=== PATIENT | male | born 1935 | race Caucasian/White ===

== ENCOUNTER 2016-07-16 11:00 | Inpatient (IN) | payer OTHER, MEDICARE ==
[~2016-07-16] VITALS: Ht 160 cm; Wt 86.3 kg
--- NOTE | ~2016-07-16 | OR ---
PATIENT'S NAME: FARHAT MANCIA [facility] AGE: 81 Y [address] ROOM: [address] [address] LOCATION: [facility] ADMIT DATE: 09/04/2016 OR/Procedure Report DISCHARGE DATE: FAMILY PHYSICIAN: Joyce Elias ATTENDING PHYSICIAN: JULES CARTAGENA SURGEON: Jules Cartagena MD SINGER AND UNLOADER: Elijah Pugh PA-C. An assistant corporate controller was necessary during the entire case. The assistant corporate controller helped with positioning the limb in space, soft tissue retraction, glenoid exposure, implant positioning, as well as wound closure. DATE OF PROCEDURE: 09/04/2016 PREOPERATIVE DIAGNOSIS: Right shoulder osteoarthritis. POSTOPERATIVE DIAGNOSES: 1. Right shoulder osteoarthritis. 2. Right biceps tendinopathy. PROCEDURES: 1. Right anatomic total shoulder arthroplasty using the Tornier Simpliciti system. 2. Open biceps tenodesis. ANESTHESIA: General. ESTIMATED BLOOD LOSS: 200 mL. DRAINS: None. SPECIMENS: None. COMPLICATIONS: None. INDICATIONS: Farhat Mancia is an 81-year-old male. He presented to my clinic with right shoulder pain. X-ray showed significant degenerative changes across that shoulder joint. An MRI was obtained, which did show a small articular-sided cuff tear, but the majority of the cuff tendon and muscle was intact. It showed some cystic changes on both the glenoids as well as the humeral head side. I talked to him about the continued conservative treatment with injections, antiinflammatories, and physical therapy. I also talked to him about the role of activity restrictions versus a shoulder replacement. Ultimately, his pain was significant enough. He elected to proceed with shoulder arthroplasty. I talked to him about the role of the reverse shoulder versus anatomic shoulder. He ultimately wanted to proceed PATIENT'S NAME: FARHAT MANCIA [facility] AGE: 81 Y [address] ROOM: [address] [address] LOCATION: [facility] ADMIT DATE: 09/04/2016 OR/Procedure Report DISCHARGE DATE: FAMILY PHYSICIAN: Joyce Elias ATTENDING PHYSICIAN: JULES CARTAGENA with shoulder replacement and is willing to take the risk. DESCRIPTION OF PROCEDURE: Surgical marking pen was used to correctly identify the right shoulder as a surgical site. Consent was signed and dated. He was taken back to the operative suite, placed supine on the OR table. He underwent general endotracheal induction and intubation. Time-out was called by myself. During the time-out, the patient, the dosing of the preoperative antibiotics, the implants to be utilized, and the postoperative plan was reviewed by everyone in the room. At this point, he was positioned in a beach chair position. All bony prominences were well padded. The right upper extremity was then prepped and draped in a standard sterile fashion. A 10 blade scalpel was used to make the standard deltopectoral incision. I dissected down through the skin and subcutaneous tissue. I identified the cephalic vein. I retracted the cephalic vein medially. I released any deltoid adhesions with a finger dissection. I then excised the bursa. I identified the coracoid as well as the conjoint tendon. I gently retracted the conjoint tendon medially. At this point, I identified the three sister vessels and ligated them. The upper 1 cm of the pectoralis major tendon was released. I identified the biceps within the groove. A #2 Orthocord stitch was used to perform a tenodesis to the long head of the biceps after it was identified in the groove. I then released the proximal extent of the long head of the biceps. Now that I had the bicipital groove identified, I peeled the subscapularis off that lesser tuberosity. I tagged it for later identification and the repair. I dislocated the shoulder joint. I was able to evaluate the insertion of the supraspinatus and the infraspinatus and they felt to be intact. I then removed any osteophytes that were present. I then made a freehand humeral head cut after I marked the guide at 135 degrees. He had very good bone, no evidence of any cyst there within that humeral cut. I used the [employer] guide size 3. I passed the guide pin into the far lateral cortex. I then concentrically reamed the cut surface of the humerus down to witness circles. I then impacted a size 3 trial nucleus into position and left the humeral head protector in place. I then exposed the glenoid. I performed a 360-degree labral excision and capsulotomy. I then determined the size of the glenoid as a size large with a 40-degree radius of curvature. I placed the central guide pin. I then sequentially reamed down to a concentric subchondral bone. I then drilled the central peg. Using the guide, I then drilled the 3 peripheral pegs. The wound was thoroughly irrigated. I did not have any perforations in those peripheral holes. At this point, a size large 40-degree radius of curvature implant was opened. I bone grafted the central peg. I then used Simplex P bone cement to cement the 3 peripheral pegs using a Deondre syringe. Once that was performed, I then impacted the final polyethylene into position. I held it in place until it had cured. Once that was performed, I then turned my attention back to the humerus. I placed a size 52 x 21 mm humeral head onto the trial nucleus. I reduced the shoulder. I had 30% spring block. I felt very comfortable with the soft tissue balance. PATIENT'S NAME: FARHAT MANCIA [facility] AGE: 81 Y [address] ROOM: [place] [address] LOCATION: [facility] ADMIT DATE: 09/04/2016 OR/Procedure Report DISCHARGE DATE: FAMILY PHYSICIAN: Joyce Elias ATTENDING PHYSICIAN: JULES CARTAGENA I then removed the trial humeral head and the nucleus. I then passed 8 drill holes in that lesser tuberosity followed by eight #2 Orthocord stitches. I then impacted the final size 3 simplicity nucleus with a 52 x 21 mm humeral head into position. No evidence of any loosening was present. I then repaired the subscapularis after I had taken the shoulder through range of motion and felt comfortable with repair. The subscapularis was repaired using those #2 Orthocord passed through bone tunnels using a mattress stitch. I then achieved hemostasis. No drain was necessary. I closed the fascia with 0 Vicryl. I closed the skin with a 2-0 Vicryl, followed by a running 3-0 Monocryl, followed by jessika, Xeroform, 4x4s, and Tegaderm. He was placed into a sling. He was transferred to the recovery room in stable condition where he was found to be neurovascularly intact. MD RACHEL LA/eric /[id number] d: 09/05/16 0016 t: 09/18/16 2132, OPERATIVE SUMMARY
--- NOTE | ~2016-07-16 | HP ---
PATIENT'S NAME: FARHAT MAGANA [facility] AGE: 81 Y [address] ROOM: [place] [address] LOCATION: G3 ADMIT DATE: 09/04/2016 History & Physical DISCHARGE DATE: FAMILY PHYSICIAN: Joyce Elias ATTENDING PHYSICIAN: JULES CARTAGENA DATE OF SERVICE: CHIEF COMPLAINT: Right shoulder pain. HISTORY OF PRESENT ILLNESS: The patient is an 81-year-old white male, who was admitted to the care of Dr. Jules Cartagena, the orthopedic surgeon, for a right total shoulder arthroplasty versus reverse total arthroplasty. I have asked to follow him postop for medical illness. When I see him, he is resting quietly in a chair, has nice drag in his right shoulder. His right arm is in a sling. He is not complaining of shortness of breath, chest pain, nausea, or vomiting. CURRENT MEDICATIONS: 1. Norvasc 10 mg a day. 2. Celexa 20 mg a day. 3. Enalapril 20 mg a day. 4. Glipizide 10 mg 2 tablets in the morning and 2 tablets in the evening. 5. Hydrochlorothiazide 25 mg a day. 6. Megestrol Acetate 40 mg p.o. twice a day. 7. Metformin 1000 mg twice a day. 8. Metoprolol 50 mg one to one and half tablets twice a day. 9. Multivitamins as needed. 10. Zantac 150 twice a day. 11. Simvastatin 40. ALLERGIES TO MEDICATION: See nurses notes. FAMILY HISTORY: Negative for problems with general anesthesia or bleeding disorder. SOCIAL HISTORY: Quit smoking years ago. Has an occasional drink of alcohol. REVIEW OF SYSTEMS: PATIENT'S NAME: FARHAT MAGANA [facility] AGE: 81 Y [address] ROOM: [address] [address] LOCATION: [facility] ADMIT DATE: 09/04/2016 History & Physical DISCHARGE DATE: FAMILY PHYSICIAN: Joyce Elias ATTENDING PHYSICIAN: JULES CARTAGENA Positive for diabetes mellitus type 2; hypertension, essential; coronary atherosclerosis and is status post one stent placed in 2002, he was cleared by cardiology on 07/24/2016 preop. PHYSICAL EXAMINATION: GENERAL: An elderly male, who is bearded, sitting in a chair, in no apparent distress. He is somewhat hard of hearing. I do think he is competent. HEENT: Shows pupils react to light. TMs not visualized. Posterior pharynx is clear. NECK: Unremarkable. LUNGS: Clear anteriorly. CARDIAC: Sounds show no obvious murmur, gallop, or rub. ABDOMEN: Mildly distended but nontender. PELVIC AND RECTAL: Not done. EXTREMITIES: Show an ice bag on his right shoulder and dressing and his right arm is in a sling. NEUROLOGIC: Exam shows no lateralizing signs. Cranial nerves are intact. Mental status normal postop. No sign of mood disorder. ASSESSMENT: 1. End-stage osteoarthritis and degenerative joint disease, right shoulder. 2. Hypertension, essential. 3. Diabetes mellitus type 2. 4. Status post stent placement for coronary artery disease in 1999. 5. Status post left inguinal hernia repair. 6. Status post right total hip arthroplasty. 7. Depression, in remission. 8. Suppressive therapy for prostate cancer in the past, hormone. 9. Gastritis. 10. Hyperlipidemia. PLAN: Follow daily. KATHY GE MD CARBURETOR REBUILDER/modl /[id number] D: T: 740 HISTORY & PHYSICAL
[2016-07-17] MEDS ORDERED: NORVASC10 MG PO (10:59)
[2016-07-17] MEDS ORDERED: VASOTEC20 MG PO (10:59)
[2016-07-17] MEDS ORDERED: CELEXA20 MG PO (10:59)
[2016-07-17] MEDS ORDERED: MEGACE40 MG PO (11:00)
[2016-07-17] MEDS ORDERED: GLUCOTROL10 MG PO (11:00)
[2016-07-17] MEDS ORDERED: HYDRODIURIL25 MG PO (11:00)
[2016-07-17] MEDS ORDERED: GLUCOPHAGE1000 MG PO (11:00)
[2016-07-17] MEDS ORDERED: LOPRESSOR50 MG PO (11:01)
[2016-07-17] MEDS ORDERED: ZOCOR40 MG PO (11:02)
[2016-07-17] MEDS ORDERED: ASPIRIN EC81 MG PO (11:02)
[2016-07-17] MEDS ORDERED: EXCEDRIN EXTRA1 TAB PO (11:03)
[2016-07-17] MEDS ORDERED: ARTIFICIAL TEAR15 M2 OPHTH (11:03)
[2016-07-17] MEDS ORDERED: PRESERVISION L1 EACH PO (11:04)
[2016-07-17] MEDS ORDERED: CPAP INH (11:05)
--- NOTE | 2016-09-05 04:08 | NUR ---
POD#1 RIGHT TSA, INCISION CDI WITH MEPILEX IN PLACE, UP WITH SBA TO THE BATHROOM, GOOD CSMS, GOOD INTAKE/OUTPUT WITH NUMEROUS URINE OUTPUTS R/T HX OF PROSTATE CANCER. VS WNL, LEFT HAND/LEFT FA PIVS SALINE LOCKED, O2 @2L OVER NIGHT PATIENT REFUSED TO USE HIS CPAP "IT DOESNT WORK RIGHT" AND WAS DESATING INTO THE MID 80'S WITHOUT THE O2 SUPPORT WHILE SLEEPING. [place] ON THE LEFT WITH AIDE IN PLACE. PAIN CONTROLLED WITH DILAUDID & SCHEDULED TYLENOL AND WILL REASSESS PAIN NEEDS BEFORE SHIFT CHANGE. POSSIBLE DC HOME TODAY.
[2016-09-05] MEDS ORDERED: ECOTRIN325 MG PO (08:22)
[2016-09-05] MEDS ORDERED: OXYCONTIN EXTEN10 MG PO (08:27)
[2016-09-05] MEDS ORDERED: DILAUDID 2MG(HYD2 MG PO (08:28)
== END 2016-09-05 10:20 | disposition disaster alternative care site (69) | DRG 483 ==
LOC: G3N 09-04 05:37
PROVIDERS: ADMIT Orthopaedic Surgery Sports Medicine
PROC: 0RRJ00Z Replacement of Right Shoulder Joint with Reverse Ball and Socket Synthetic Substitute, Open Approach (ICD-10-PCS; principal; 2016-09-04)
DX: M19.011 Primary osteoarthritis, right shoulder (principal); E11.9 Type 2 diabetes mellitus without complications; I10 Essential (primary) hypertension; Z87.891 Personal history of nicotine dependence; F32.9 Major depressive disorder, single episode, unspecified; K29.70 Gastritis, unspecified, without bleeding; E78.5 Hyperlipidemia, unspecified; Z85.46 Personal history of malignant neoplasm of prostate
CPT/HCPCS: C1713; C1776; J0171; J0690; J1100; J2001; J7030; J7120

== ENCOUNTER 2016-09-13 18:20 | Inpatient (IN) | payer OTHER, MEDICARE ==
[~2016-09-13] VITALS: Ht 160 cm; Wt 84.4 kg
--- NOTE | ~2016-09-13 | HP ---
PATIENT'S NAME: FARHAT MAGANA [facility] AGE: 81 Y [address] ROOM: [id number] [place], [place] [address] LOCATION: [facility]PCU ADMIT DATE: 09/13/2016 History & Physical DISCHARGE DATE: FAMILY PHYSICIAN: PHYSICIAN, UNKNOWN ATTENDING PHYSICIAN: MARIAH FRANCO V DATE OF SERVICE: CHIEF COMPLAINT: Shortness of breath. HISTORY OF PRESENT ILLNESS: This is an 81-year-old male who is a poor historian. The story is obtained directly from the patient and from reviewing the medical chart and the story is that the patient presented to [facility] on September 11, 2016 in the emergency room for urinary frequency and difficulty and the patient had a bladder scan performed at the [facility] earlier ago and show 1 L of urine retention. The patient was transferred to [facility] and the Martino was placed and had 1.5 L of urine drained. The patient was also noted to be drowsy and there was a concern that he might be taking too much narcotics for his recent right shoulder replacement surgery. However, this was never confirmed. Further workup was performed and the patient was found to have bilateral pulmonary emboli on the CT of the chest with contrast given that the patient was found to be hypoxic with 86% on room air. D-dimer was also elevated at 3510. The patient did not complain of any chest pain at that time, the patient is a poor historian, he also denies any shortness of breath, which is unreliable. The patient was admitted and the patient was started on Xarelto starting on September 11, 2016 with 15 mg p.o. b.i.d. Today, on September 13, 2016, the patient was noted to be tachypneic. The patient was supposed to wear CPAP at night for his sleep apnea, but has been noncompliant due to discomfort by wearing the mask. The patient denies any chest pain, he also denies any shortness of breath, but the patient was found to have a low-grade temperature at 100.1 and was still hypoxic at 96% on 4 L nasal cannula; however, he denies any cough and also denies any chest pain and denies any shortness of breath. Therefore, imaging test was performed. The patient had a chest x-ray performed on September 13, 2016 and showed cardiac enlargement with diffuse interstitial prominence identified likely secondary to interstitial edema. Therefore, the patient was treated with IV Lasix, he has gotten a total of 120 mg IV, and has total urine output of roughly 2 L. The patient was later transferred here for higher level of care for concern of CHF and pneumonia due to low-grade fever and still hypoxic despite getting Xarelto and on oxygen nasal cannula. REVIEW OF SYSTEMS: As mentioned in the history of present illness. All other systems reviewed PATIENT'S NAME: FARHAT MAGANA [facility] AGE: 81 Y [address] ROOM: [id number] [place] [id number] LOCATION: [facility]U ADMIT DATE: 09/13/2016 History & Physical DISCHARGE DATE: FAMILY PHYSICIAN: PHYSICIAN, UNKNOWN ATTENDING PHYSICIAN: MARIAH FRANCO V and negative except those mentioned in the history of present illness. PAST MEDICAL HISTORY: From the medical records that I could get is that: 1. He has a history of prostate cancer, details are not clear, the patient is a poor historian. 2. Diabetes mellitus type 2. 3. Hypertension. 4. Osteoarthritis. 5. Hyperlipidemia. 6. Hard of hearing. ALLERGIES: NO KNOWN DRUG ALLERGIES, ACCORDING TO THE PATIENT AND TO THE CHART. HOME MEDICATIONS: Currently, it is being reconciled. SOCIAL HISTORY: According to the patient, he was a former cigarette smoker, he quit about 18 years ago. He used to smoke about 1 pack per day for many years. He denies any alcohol or illegal drug use. PAST SURGICAL HISTORY: 1. Status post right shoulder arthroplasty from osteoarthritis on September 04, 2016. 2. History of cardiac stent placement in 1999, details not clear. 3. Status post left inguinal hernia repair in the past. 4. Status post total right hip arthroplasty in the past. 5. The patient denies any other surgeries according to the patient. FAMILY HISTORY: Both parents from advanced age, the patient could not remember the cause of . PHYSICAL EXAMINATION: VITAL SIGNS: At the time of my dictation, temperature 98.5, heart rate 88, respiration 26, blood pressure 133/70, and saturation 92% on 4 L nasal cannula. Pain 0/10. GENERAL APPEARANCE: The patient is alert and oriented x3, in mild respiratory distress, from tachypnea. HEENT: Pupils equally round and reactive to light. Extraocular muscles intact. Difficult to assess JVD due to obesity. CARDIOVASCULAR: Regular rate and rhythm. Normal S1, S2. Could not appreciate murmur, rubs, or gallops. PATIENT'S NAME: FARHAT MAGANA [facility] AGE: 81 Y [address] ROOM: [address] [address] LOCATION: [facility] ADMIT DATE: 09/13/2016 History & Physical DISCHARGE DATE: FAMILY PHYSICIAN: PHYSICIAN, UNKNOWN ATTENDING PHYSICIAN: MARIAH FRANCO V RESPIRATORY: Bibasilar crackles. No rhonchi, no rales, no wheezing. ABDOMEN: Obese, soft, nontender, nondistended, bowel sounds present, no hepatosplenomegaly. EXTREMITIES: A +1 bilateral pitting edema in bilateral anterior calves. NEUROLOGIC: Grossly nonfocal. SKIN: No ulcer, no rash, no cyanosis. MUSCULOSKELETAL: No joint pain. No muscle pain except some mild pain in the right shoulder. LABORATORY DATA: Currently, labs are pending. IMAGING STUDIES: 1. Currently, chest x-ray is pending. 2. EKG from the outside facility performed on September 11, 2016 shows sinus rhythm, heart rate at 68 beats per minute, CT 148, QRS 86, QTc 457. No finding to suggest acute ischemia. ASSESSMENT AND PLAN: 1. Acute hypoxemic respiratory failure, secondary to bilateral pulmonary emboli as well as acute congestive heart failure and possibly pneumonia: For the bilateral pulmonary emboli, I will resume the Xarelto, which he is taking 15 mg p.o. b.i.d., he is due for 1 dose tonight. Keeping on oxygen nasal cannula, right now, he is on 4 L, saturating at 92%. Watch him closely for blood pressure; currently, he is hemodynamically stable. For his acute congestive heart failure, I am not sure which type given that there is no echo. We will get a transthoracic echo in the morning. Fluid restriction to less than 1.2 L per day. Strict in's and out's, daily weight, and I will check an enzyme and the pro-BNP now and also repeat 1 more in the morning. I will get a Cardiology consult in the morning as well. EKG in the morning as well. I will give him another dose of 40 mg intravenous Lasix and replace potassium as necessary given that he still has bibasilar crackles and still has leg edema, which is new onset, according to him. Continue telemetry monitoring. Regarding his possible pneumonia, I will get a chest x-ray, right now. He is not coughing, but he does have bibasilar crackles, I will put him on the incentive spirometry to prevent atelectasis and given that he has low- grade fever from the outside facility, I will go ahead and give him 1 dose of intravenous linezolid and intravenous meropenem and also p.o. Levaquin and depending on his overnight course tomorrow can decide about continuing the antibiotics or not. I will do the pneumonia workup including nebulization and check a urine antigen for Legionella and pneumococcal and also do a sputum culture and gram stain if he produces any sputum. Currently, the patient is not coughing. I will not give steroids because he is not wheezing and the steroids can cause fluid PATIENT'S NAME: FARHAT MAGANA [facility] AGE: 81 Y [address] ROOM: [address] [address] LOCATION: [facility] ADMIT DATE: 09/13/2016 History & Physical DISCHARGE DATE: FAMILY PHYSICIAN: PHYSICIAN, UNKNOWN ATTENDING PHYSICIAN: MARIAH FRANCO V retention. Further plan depends on clinical course. 2. Regarding his diabetes type 2. I will do the insulin sliding scale with aspart a.c. and h.s. mild dose and check A1c in the morning. Titrate as necessary. 3. Regarding his urinary retention: Continue to keep the Martino in place and I will get a Urology consult in the morning. 4. Hypertension: I will hold his home blood pressure medications for now to give more room to the Lasix. 5. Deep vein thrombosis prophylaxis: He will be on Xarelto. 6. Code status: He is DNR/DNI. Time spent on the day of admission 45 minutes including chart review, interviewing and examining the patient, addressing all the questions and concerns that the patient had, and going over the plan of care with the patient and the patient's grandson and the nurses. MARIA INES HOLLOWAY MD CC/eric /[id number] D: [id number] T: [id number] HISTORY & PHYSICAL
--- NOTE | ~2016-09-13 | CON ---
PATIENT'S NAME: FARHAT MANCIA [facility] AGE: 81 Y [address] ROOM: [place] [address] [facility] ADMIT DATE: 09/13/2016 Consultation DISCHARGE DATE: FAMILY PHYSICIAN: PHYSICIAN, UNKNOWN ATTENDING PHYSICIAN: MARIAH FRANCO V REFERRING PHYSICIAN: ANAY SAEZ MD Dear Colleagues: Thank you for asking me to see Mr. Mancia, who is an 81-year-old male patient, who had increased frequency of micturition and also somnolence. This was evaluated in [facility] and was found to have 1500 mL residual volume in his urine along with bilateral pulmonary emboli. He was transferred over for further management and he is already on Xarelto. He, before this problem, had a left shoulder surgery. Prior to which, he had a Lexiscan Cardiolite study for preop evaluation, which was essentially unremarkable with normal ejection fraction and inferior wall fixed defect most consistent with soft tissue attenuation. The patient denies any chest pains per se. He has not been particularly short of breath before the surgery. He has been in functional class 2. He has not had any structured exercise program. He has been working out in the yard and has not had much of a problem. Currently, there has been no paroxysmal nocturnal dyspnea or orthopnea. He denies lightheadedness, dizziness, syncope, presyncope, palpitations, or ankle swelling. The patient has history of hypertension, type 2 diabetes, and elevated cholesterol. He is not a smoker and there is no family history of premature coronary artery disease. He has never had an KS, but had a stent placed in the year 1999. There is no history of congestive heart failure or atrial fibrillation. MEDICATIONS: His current list of medications are; 1. Ipratropium bromide. 2. Levalbuterol hydrochloride. 3. Citalopram. 4. Insulin. 5. Megestrol 40 mg b.i.d. 6. Rivaroxaban 15 mg b.i.d. 7. Glucagon. 8. Simvastatin 20 mg every evening. 9. Sodium chloride. PATIENT'S NAME: FARHAT MANCIA [facility] AGE: 81 Y [address] ROOM: [place] [address] LOCATION: [facility] ADMIT DATE: 09/13/2016 Consultation DISCHARGE DATE: FAMILY PHYSICIAN: PHYSICIAN, UNKNOWN ATTENDING PHYSICIAN: MARIAH FRANCO V ALLERGIES: NO KNOWN DRUG ALLERGIES. PAST MEDICAL HISTORY: 1. Osteoarthritis. 2. Hardness of hearing. 3. History of prostate cancer. 4. Right shoulder arthroplasty. 5. Left inguinal hernia. 6. Right total hip arthroplasty. SOCIAL HISTORY: The patient is . He denies abusing alcohol. His appetite and weight have been stable. He quit smoking 18 years ago. FAMILY HISTORY: No premature coronary artery disease. REVIEW OF SYSTEMS: A 12-point review of systems; 1. History of inguinal hernia. 2. History of constipation. 3. Frequent voiding. 4. Sleepiness and weakness. PHYSICAL EXAMINATION: VITAL SIGNS: His blood pressure is 130/62, oxygen saturation is 92%, heart rate is in the 90s and regular, and respiration is 18. HEENT: Normal. NECK: Supple with no JVD, thyromegaly, lymphadenopathy, or carotid bruit. HEART: PMI is not well located. First and second heart sounds are regular. There are no added sounds. CHEST: Clear. ABDOMEN: Soft. EXTREMITIES: Reveal no edema. CENTRAL NERVOUS SYSTEM: Intact. ASSESSMENT: Multiple pulmonary emboli bilaterally. He had a recent stress test in July that was negative for ischemia. He had an echo today that has not been read yet. His troponins are negative. His proBNP is elevated at 1745. He is anemic at 9 grams. His renal function and liver function studies were within normal range. Potassium is 3.7. PATIENT'S NAME: FARHAT MANCIA [facility] AGE: 81 Y [address] ROOM: [id number] [place] [id number] LOCATION: [facility] ADMIT DATE: 09/13/2016 Consultation DISCHARGE DATE: FAMILY PHYSICIAN: PHYSICIAN, UNKNOWN ATTENDING PHYSICIAN: MARIAH FRANCO V RECOMMENDATIONS: 1. I agree with continuing with the anticoagulation. 2. We will see what his echo looks like. 3. History of PCI in the past. We will make sure that he is on appropriate dose of atorvastatin before he leaves the hospital. Again, I appreciate this opportunity to participate in the care of Mr. Mancia. MD KARLENE KOLB/modl /[id number] d: 09/14/16 1807 t: 09/24/16 1234, CONSULTATION REPORT
--- NOTE | ~2016-09-13 | DS ---
PATIENT'S NAME: FARAHT MAGANA [facility] AGE: 81 Y [address] ROOM: G6314 [place], [place] [address] LOCATION: GPCU ADMIT DATE: 09/13/2016 Discharge Summary DISCHARGE DATE: 09/18/2016 FAMILY PHYSICIAN: Joyce Elias ATTENDING PHYSICIAN: Gumaro Vela V PRIMARY DIAGNOSES: 1. Acute hypoxic respiratory failure. 2. Acute pulmonary embolism. 3. Acute on chronic diastolic congestive heart failure. 4. Acute urinary retention. 5. Diabetes type 2 with hyperglycemia. 6. Sinus tachycardia with premature atrial contractions. 7. Thrombocytosis. PRINCIPAL PROCEDURE: Done for the patient, none was indicated. LABORATORY DATA: On admission, WBC on admission was 9.7, was still throughout the hospital stay, by discharge it was 9.8; H and H on admission was 9.3/28.0, prior to discharge was 9.6/30.4; platelets on admission was 580, prior to discharge was 544. Sodium 139, was stable throughout the hospital stay; potassium on admission was 3.6, prior to discharge was 3.7; bicarb was stable at 23; BUN on admission was 21, prior to discharge it was 34; and creatinine on admission was 1.1, prior to discharge was 1.3. Liver function tests remained stable throughout the hospital stay. INR was 1.2. UA: Leukocytes 500, nitrite negative, wbc's 50-100, and bacteria moderate. Procalcitonin on admission was 0.39, repeat was 0.32. Urine for Legionella antigen was negative. Urine culture was no growth x2 days. Blood cultures remained no growth x2 days. Echocardiogram: EF 60%, [id number] concentric LVH, normal LV size, normal right ventricular structure and function. RADIOLOGY: Chest x-ray on admission, there appears to be slight worsening hazy perihilar interstitial opacity suggesting interstitial edema. No discrete focal infiltrate, pleural effusion, or pneumothorax identified. Repeat chest x-ray shows cardiac enlargement with mild vascular congestion; reticular opacity in the parenchyma of both lungs, likely reflecting interstitial edema; interval improvement since prior imaging. A chest x-ray on the day of discharge is reported as improvement in radiographic appearance with partial clearing in the lungs since prior imaging. HOSPITAL COURSE: For history of present illness, please take a look at the H and P, which was done by Dr. Venegas. The patient was admitted for acute hypoxic respiratory failure. The working differentials included pneumonia versus pulmonary edema from CHF exacerbation. The patient did get 1 dose of broad- spectrum antibiotics of Zyvox, Levaquin, and Zosyn. All of which were PATIENT'S NAME: FARHAT MAGANA [facility] AGE: 81 Y [address] ROOM: [place] [address] LOCATION: GPCU ADMIT DATE: 09/13/2016 Discharge Summary DISCHARGE DATE: 09/18/2016 FAMILY PHYSICIAN: Joyce Elias ATTENDING PHYSICIAN: Gumaro Vela V discontinued by the next day of the hospital stay except for the Levaquin which he continued on for an additional 4 days. He did also present with acute urinary retention, for which he had a Urology consult for, and after the patient was reviewed by Urology and they recommended for the patient to follow up with his urologist at the [facility] and recommendation per Urology, Dr. Barney, included that of Martino catheter indwelling with routine exchange of the Martino catheter every 4 weeks. While the patient will follow up with his urologist at the [facility], who will continue to follow up with the patient and decide when the patient will be an appropriate candidate for a suprapubic tube catheter. The patient also did get a Cardiology consult given the acute hypoxic respiratory failure, which was also thought to be secondary to pulmonary edema from heart failure. His echocardiogram which was done revealed a diastolic heart failure. He was diuresed with improvement in his breathing and also with a decrease in his oxygen demand. Cardiology subsequently started the patient on Aldactone, and after a couple of days, his Lasix was discontinued and was started on torsemide by the lead cook of 20 mg daily. However given the slow increase in his creatinine, I decided to reduce the torsemide dose from 20 to 10 mg. eventually a day prior to discharge, the patient was successfully weaned off oxygen to room air. He did also get physical therapy and also ambulated more than 300 feet. Initial discharge plan was for probably the patient to go to a Swing Bed given the fact that at that point in time, he still required 1-2 L of oxygen and given his physical deconditioning; however, after he was further reviewed by the physical therapist and with the amount of distance that he was able to walk, home care associate felt the patient would not be an appropriate candidate for a Swing Bed and family was willing to take the patient home to continue with his care with home health. So ultimately, this was decided upon for the patient to be discharged home with home health as per family's request and given his relatively good ambulation. So on the day of discharge, vital signs were stable and the patient was discharged home. The patient was continued on his Xarelto which he presented with for his acute PE which was diagnosed at the referring center. The patient was subsequently put on Bactrim given the fact that he was going to have a chronic indwelling Martino catheter. He received b.i.d. doses of 0.5 mg while inpatient and upon discharge, this was decreased down to 0.5 mg daily. MEDICATIONS ON DISCHARGE: Include, 1. Celexa 10 mg p.o. daily. 2. Lipitor 40 mg p.o. daily. 3. Megace 40 mg p.o. twice daily. 4. Norvasc 10 mg p.o. daily. 5. Glipizide 10 mg p.o. twice daily. 6. Lopressor 25 mg p.o. b.i.d., dose changed. 7. Xarelto 15 mg p.o. b.i.d. for 3 weeks, needs 2 more weeks' dose, and thereafter Xarelto 20 mg p.o. daily for 5 months. PATIENT'S NAME: FARHAT MAGANA [facility] AGE: 81 Y [address] ROOM: [place] [address] LOCATION: [facility] ADMIT DATE: 09/13/2016 Discharge Summary DISCHARGE DATE: 09/18/2016 FAMILY PHYSICIAN: Joyce Elias ATTENDING PHYSICIAN: Gumaro Vela V 8. Aldactone 25 mg p.o. daily. 9. Bactrim 0.5 mg tablet daily, new medication. 10. Torsemide 10 mg p.o. q.a.m. 11. [place] 5/325 tablet 1 tablet q. 4 hours p.r.n. 12. Metformin 1 g p.o. twice daily. 13. Artificial Tears 1 drop 4 times daily. 14. PreserVision 1 tablet p.o. twice daily. 15. CPAP. MD TOR LAGUNAS/eric /[id number] d: 09/19/16 0120 t: 09/22/16 1352, DISCHARGE SUMMARY
--- NOTE | ~2016-09-13 | ECHO ---
Transthoracic Echocardiography Report (TTE) Demographics Patient Name FARHAT MAGANA Date of Study 09/15/2016 Patient Number [id number] Visit Number [id number] Date of 1935 Room Number G6314 Gender Male Number Age 81 year(s) Referring Mirian Naik V Pv Installer Tech Genna RVT, RDCS Physician MD Mejia Physician Interpreting Rai Slater MD Control Chemist Physician Supervising Ordering Rai Slater MD, MD/MLP Physician Nurse Stress Supervisor Commissary Production Conclusions Contractility Score Summary Normal Left Ventricular contractility was noted. Summary Technically difficult exam due to lung interference. 3 mL Definity contrast was administered. The estimated left ventricular ejection fraction is 60%.Mild to moderate concentric left ventricular hypertrophy.Normal LV size.RWMAs are difficult to comment on. Procedure Type of Study TTE procedure:2D Echocardiogram, M-Mode, Doppler , Color Doppler, Contrast study. Procedure Date Date: 09/15/2016 Start: 02:30 PM Study Location: Inpatient Portable Technical Quality: Limited visualization Indications:CHF and Pulmonary embolus. Appropriate Use Criteria: 9 Patient Status: Routine HR: 91 bpm BP: 133/76 mmHg M-Mode/2D Measurements LV Diastolic Dimension: 4.71 cm LV Systolic Dimension: 3.22 cm LV Septum Diastolic: 1.52 cm LV PW Diastolic: 1.43 cm AO Root Dimension: 2.8 cm Cardiac Output: 5.63 l/min AV Cusp Separation: 1.9 cm RV Diastolic Dimension: 2.6 cm LA volume: 45 ml LVOT: 2 cm RV Base: 2.88 cm LVOT VTI: 19.7 cm RV Mid: 3.14 cm LV Stroke volume: 61.86 ml TAPSE: 2.23 cm TDI-S': 17.9 cm/s Doppler Measurements AV Peak Velocity: 1.13 m/s MV Peak E-Wave: 0.56 m/s AV Peak Gradient: 5.11 mmHg MV Peak A-Wave: 0.98 m/s AV Mean Gradient: 3 mmHg MV E/A Ratio: 0.57 LVOT Peak Velocity: 0.86 m/s MV P1/2t: 101 msec TR Gradient:5.38 mmHg PV Peak Velocity: 0.83 m/s PV Peak Gradient: 2.74 mmHg E' Septal Velocity: 0.07 m/s A' Septal Velocity: 0.13 m/s E' Lateral Velocity: 0.06 m/s A' Lateral Velocity: 0.12 m/s Findings Left Ventricle Mild to moderate concentric left ventricular hypertrophy with normal EF and size.RWMAs are difficult to comment on. Right Ventricle Normal right ventricle structure and function. Left Atrium Normal left atrial size. Right Atrium Normal right atrial size. Mitral Valve Normal mitral valve structure and function. Aortic Valve Normal aortic valve structure and function. Tricuspid Valve Trivial tricuspid regurgitation by color Doppler. Pulmonic Valve Normal pulmonic valve structure and function. Pericardial Effusion No evidence of pericardial effusion. Miscellaneous Visualized portions of the aortic root and ascending aorta appear normal in size. Pleural Effusion No evidence of pleural effusion. Contractility Score LV regional wall motion:(0-Non visualized 1-Normal 2-Hypokinesis 3-Akinesis 4-Dyskinesis 5-Aneurysm) Signature dtt: Nohemy Atwood dtd: 09/15/16 8270 Physician Self Edit
--- NOTE | ~2016-09-13 | CON ---
PATIENT'S NAME: FARHAT MAGANA [facility] AGE: 81 Y [address] ROOM: [place] [address] LOCATION: [facility] ADMIT DATE: 09/13/2016 Consultation DISCHARGE DATE: FAMILY PHYSICIAN: PHYSICIAN, UNKNOWN ATTENDING PHYSICIAN: MARIAH FRANCO V DATE OF CONSULTATION: 09/14/2016 REFERRING PHYSICIAN: ANAY SAEZ MD CHIEF COMPLAINT: Urinary retention. HISTORY OF PRESENT ILLNESS: The patient is a pleasant 81-year-old male who was transferred for higher level of care from [facility]. He was found in [place] to have over 1 L residual on bladder scan, and so they placed a Martino catheter with return of over 1.5 L of urine output. He denies any prior history of urinary retention. There is a vague history of prostate cancer, and on further questioning of the family, the mother and daughter report that he had underwent brachytherapy approximately 12 years ago, possibly by Dr. Melissa in [place], [place]. They state however that on his biopsy that this was not all that conclusive with prostate cancer and this was also sent for 2nd opinion to the [facility], but that he underwent brachytherapy anyway. He had also apparently been on hormonal therapy with androgen deprivation therapy for approximately 13 years, but apparently at the [facility], then stopped that medication. He has not had any reported blood in his urine. He also does have a history of diabetes mellitus. Most recent serum creatinine level today of 1.1. He also had a urinalysis yesterday with negative nitrites and moderate bacteria. There were 500 leukocytes noted. The patient is a poor historian and most of the history today was obtained from the mother and daughter. The patient and family have no other concerns or complaints at this time. PAST MEDICAL HISTORY: 1. Urinary retention. 2. History of prostate cancer. 3. Diabetes mellitus type 2. 4. Hypertension. 5. Osteoarthritis. 6. Hyperlipidemia. PAST SURGICAL HISTORY: 1. Right shoulder arthroplasty on September 04, 2016. 2. Cardiac stent placement in 1999. 3. Left inguinal hernia. PATIENT'S NAME: FARHAT MAGANA [facility] AGE: 81 Y [address] ROOM: [place] [address] LOCATION: GPCU ADMIT DATE: 09/13/2016 Consultation DISCHARGE DATE: FAMILY PHYSICIAN: PHYSICIAN, UNKNOWN ATTENDING PHYSICIAN: MARIAH FRANCO V 4. Total right hip arthroplasty. FAMILY HISTORY: Noncontributory. No reported family history of genitourinary abnormalities. SOCIAL HISTORY: Former cigarette smoker, quitting 18 years ago. He does have a history of smoking 1-pack per day for many years. He has denied any alcohol or illicit drug use. MEDICATIONS: See hospitalization medication reconciliation. ALLERGIES: NO REPORTED AND NO KNOWN DRUG ALLERGIES. REVIEW OF SYSTEMS: A full 10+ point review of systems was performed with pertinent positive and negative findings included in history of present illness. All other systems were reviewed and are otherwise negative. PHYSICAL EXAMINATION: VITAL SIGNS: The patient's temperature 98.2 Fahrenheit, pulse 92, blood pressure 135/60, respiratory rate 20, oxygen saturation 92% on 1 L. CONSTITUTIONAL: The patient is not oriented and also somewhat hard of hearing. HEENT: Extraocular muscles intact. Mucous membranes moist. No drainage per ears and nose. CARDIAC: Good peripheral perfusion. No tachycardia. RESPIRATORY: No audible wheezing. ABDOMEN: Soft, nontender, nondistended. GENITOURINARY: Indwelling Martino catheter draining clear yellow urine output. Normal uncircumcised phallus with testicles palpably bilaterally. Digital rectal exam, the prostate is approximately 30 to 35 g in size with slight firmness along the apex and midline, but no large nodules noted. MUSCULOSKELETAL: Moves all extremities. NEUROLOGIC: No focal deficits noted. HEMATOLOGIC: No active sites of bleeding noted. PSYCHIATRIC: The patient is somewhat hard of hearing and poor historian. IMPRESSION: 1. Urinary retention. 2. History of prostate cancer, status post apparent brachytherapy in past. PLAN: PATIENT'S NAME: FARHAT MAGANA [facility] AGE: 81 Y [address] ROOM: [address] [place] [address] LOCATION: GPCU ADMIT DATE: 09/13/2016 Consultation DISCHARGE DATE: FAMILY PHYSICIAN: PHYSICIAN, UNKNOWN ATTENDING PHYSICIAN: MARIAH FRANCO V I had a long discussion today with the patient and family regarding my findings. We discussed different etiologies of urinary retention as well as management options. We discussed that he may have a multifactorial component to his urinary retention including possible neurogenic bladder given his history of diabetes mellitus. I also discussed the possibility of bladder outlet obstruction. I would be somewhat hesitant however given the patient's instability with mobilization and starting him on any alpha blockade with chance of orthostatic hypotension and putting him at even higher risk for falls. I would recommend however leaving the Martino catheter indwelling with routine exchange of the Martino catheter every 4 weeks from now. We will plan for him to follow up with the [facility] urologist, whom he apparently had seen in the past. Certainly, they can consider him for possible suprapubic tube catheter, should he be deemed catheter dependent long-term. He may also need further evaluation with cystoscopy to evaluate for any bladder outlet obstruction. I suspect however given his age and multiple medical comorbidities that he would not be a candidate for any interventions. The family's questions and concerns were addressed and they have no further at this time. ANAY SAEZ MD GP/modl /[id number] d: 09/14/16 1736 t: 09/26/16 1103, CONSULTATION REPORT
[~2016-09-13 18:20] MED LIST: ARTIFICIAL TEAR15 M2 OPHTH; ASPIRIN EC81 MG PO; CELEXA20 MG PO; CPAP INH; DILAUDID 2MG(HYD2 MG PO; ECOTRIN325 MG PO; EXCEDRIN EXTRA1 TAB PO; GLUCOPHAGE1000 MG PO; GLUCOTROL10 MG PO; HYDRODIURIL25 MG PO; LOPRESSOR50 MG PO; MEGACE40 MG PO; NORVASC10 MG PO; OXYCONTIN EXTEN10 MG PO; PRESERVISION L1 EACH PO; VASOTEC20 MG PO; ZOCOR40 MG PO
[2016-09-13] MEDS ORDERED: NORCO 5-325 TA1 EACH PO (20:22)
--- NOTE | 2016-09-13 20:39 | NUR ---
81 Y/O MALE ADMITTED FOR RESPIRATORY DISTRESS & BILAT PE. PT ARRIVES WITH A LOVE INPLACE. PT FATIGUED & TIRED. PT HAD NOT BEEN FEELING WELL SINCE EARLIER THIS WEEK WITH NO APPETITE, WEAKNESS, SOB, AND INCREASED ISSUES WITH URINARY RETENTION. NO KNOWN MEDICATION ALLERGIES MEDICAL & SURGICAL HISTORY - TOTAL HIP, BILAT CATARACT, PROSTATE CANCER-SEED PLACED, RT TOTAL SHOULDER 09/04/16, ING HERNIA REPAIR, DMII-ORAL MEDS, HTN, HIGH CHOL, CAD, COPD, SLEEP APNEA, HOME C-PAP, ARTHRITIS, DEPRESSION, FORMER SMOKER & TOBACCO CHEWER. REPORT GIVEN TO PT PRIMARY CARE NURSE LIDIA VALDERRAMA ADM EDUC ALREADY KNOWLEDGED - FAMILY , PT CURRENTLY FORGETFUL
[2016-09-13 22:42] LABS: BILIRUBIN URINE NEGATIVE (NEGATIVE); BLOOD URINE 250 /UL (NEGATIVE); GLUCOSE URINE NEGATIVE (NEGATIVE); KETONE URINE NEGATIVE (NEGATIVE); LEUKOCYTES URINE 500 /UL (NEGATIVE); NITRITE URINE NEGATIVE (NEGATIVE); PH URINE 6.5 (4.0-8.0); PROTEIN URINE 30 mg/dL (NEGATIVE); UROBILINOGEN URINE NORMAL (NORMAL)
[2016-09-13 22:49] LABS: COLOR URINE PINK (YELLOW); TURBIDITY URINE 1+ (CLEAR)
[2016-09-13 23:01] LABS: HEMOGLOBIN 9.3 g/dL (11.0-16.0); MCH 30.3 pg (27.0-34.0); MCHC 33.2 gm/dL (32.0-36.5); MCV 91.2 fl (83.0-98.0); PLATELET COUNT 580 K/uL (150-450); RBC 3.07 M/uL (3.50-5.50); RDW-CV 13.2 % (11.9-14.6); WBC 9.7 K/uL (4.0-11.0)
[2016-09-13 23:05] LABS: BACTERIA URINE MODERATE (NEGATIVE); RBC URINE 20-50 #/HPF (NEGATIVE); WBC URINE 50-100 #/HPF (NEGATIVE)
[2016-09-13 23:07] LABS: INR - (THERAPEUTIC) 1.2 (0.9-1.1); PROTIME 12.4 SECONDS (9.6-11.1); PTT 34 SECONDS (25-32)
[2016-09-13 23:11] LABS: ALBUMIN 2.5 gm/dL (3.5-5.0); ALK PHOS 66 IU/L (33-138); ALT 19 IU/L (12-78); ANION GAP 15.6 (10.0-19.0); AST 28 IU/L (10-40); BLOOD UREA NITROGEN 21 mg/dL (6-24); CALCIUM 7.9 mg/dL (8.5-10.5); CHLORIDE 104 mMol/L (96-110); CO2 23 mMol/L (22-32); CPK 119 IU/L (35-332); CREATININE 1.1 mg/dL (0.6-1.3); ESTIMATED GFR (MDRD EQUATION) > 60; MAGNESIUM 1.7 mg/dL (1.3-2.6); PHOSPHORUS 3.2 mg/dL (2.5-4.9); POTASSIUM 3.6 mMol/L (3.7-5.1); SODIUM 139 mMol/L (135-145); TOTAL BILIRUBIN 0.5 mg/dL (0.0-1.5); TOTAL PROTEIN 6.8 g/dL (6.0-8.4)
[2016-09-13 23:43] LABS: ABSOLUTE NEUTROPHIL CT (ANC) 8.5 K/uL (1.4-9.0); LYMPHOCYTE # 0.6 K/uL (0.8-4.0); LYMPHOCYTE % 6 %; MONOCYTE # 0.5 K/uL (0.0-1.0); SEGMENTED NEUTROPHIL # 8.5 K/uL (1.4-9.0); SEGMENTED NEUTROPHIL % 88 %
[2016-09-14 05:27] LABS: HEMATOCRIT 27.7 % (33.0-50.0); MCH 29.8 pg (27.0-34.0); MCHC 32.5 gm/dL (32.0-36.5); MCV 91.7 fl (83.0-98.0); MPV 9.6 fl (9.4-12.4); RBC 3.02 M/uL (3.50-5.50); RDW-CV 13.2 % (11.9-14.6); WBC 9.2 K/uL (4.0-11.0)
[2016-09-14 05:40] LABS: ANION GAP 16.7 (10.0-19.0); BLOOD UREA NITROGEN 20 mg/dL (6-24); CHLORIDE 102 mMol/L (96-110); CO2 22 mMol/L (22-32); CREATININE 1.1 mg/dL (0.6-1.3); ESTIMATED GFR (MDRD EQUATION) > 60; POTASSIUM 3.7 mMol/L (3.7-5.1); SODIUM 137 mMol/L (135-145)
[2016-09-14 05:45] LABS: CPK 98 IU/L (35-332)
--- NOTE | 2016-09-14 07:17 | NUR ---
Significant Event: Patient alert and oriented X3, but forgetful. Patient very restless and impulsive. Pulled at morfin and tele. Patient discontinued own IV. Mitten restraints applied. Sets off bed alarm. yells out at times. SBP 110-120's. HR 90's-low 100's. 4L O2. Refuses C-Pap per home. Afebrile. Recent right shoulder surgery. Dressing C/D/I. morfin present with pink, cloudy urine. Turned and repositioned frequently. Patient has a pea sized open area to coccyx. SL IV to left Post. FA. No c/o pain. Did not sleep tonight. Up to bathroom with 1 assist and gait belt. Follow up: Continue to monitor.
--- NOTE | 2016-09-14 07:26 | NUR ---
Patient arrived to PCU by ambulance at 1930. Patient had right shoulder surgery on 09/04/16. Per family he has not felt well since and was having increased shortness of breath and drowsiness since going home. Patient was taken to [facility] on friday this week. CT of chest showed bilat PE's. Xarelto started BID. Patient continued to have increased shortness of breath. Lasix given X2 yesterday and transfered to [facility] for increased level of care. transfered with morfin in place for urinary retention. Patient had 1300mls of UOP prior to arrival on PCU. [address] on admission[address] Left AC and right hand. Nitro gtt at 5mcg/min discontinued to Dr. Vela on admission. 4L NC. Patient has home C-Pap but is non-compliant. RR in 30's on admit. End tital monitor on with ETCO2 22.
--- NOTE | 2016-09-14 16:11 | NUR ---
Significant Event: PT A/O X3, VSS, PT FOLLOW SIMPLE COMMANDS -PLEASENT AND COOPERATIVE, TRIAL TO D/C RESTRAINTS - PT REMAINS COMPLAINT W/ NOT REMOVING IV/LOVE. RESTRAINTS D/C. CALL CONSULTS TO CARDIO - DR. Connolly, AND UROLOGY - DR. SAEZ. FLUID RESTRICATION 1500CC/DAY. PT UP TO BR W/ ASSIST X1. CALL LIGHT AND PERSONAL ITEMS IN REACH. QUESTIONS/CONCERNS ADDRESSED THIS TOD. Follow up:CARDIO TO SEE - POSSIBLE FOR 40 OF KARLY WHEELER FROM 06/2016 ON CHART, UROLOGY TO SEE. CONTINUE TO KIARA, CONTINUE PER PLAN OF CARE.
--- NOTE | 2016-09-15 05:48 | NUR ---
Significant event: A/O x 3. Up with 1 assist in room. Martino intact with 700ml UOP. Rested well throughout the night with the c-pap on. Used call light appropriately and made no attempts to get out of the bed without assistance.
[2016-09-15 08:02] LABS: BASOPHIL # 0.1 K/uL (0.0-0.2); BASOPHIL % 0.7 %; EOSINOPHIL # 0.2 K/uL (0.0-0.5); EOSINOPHIL % 1.6 %; HEMATOCRIT 27.7 % (33.0-50.0); HEMOGLOBIN 9.3 g/dL (11.0-16.0); IMMATURE GRANULOCYTE # 0.1 K/uL (0.0-0.3); IMMATURE GRANULOCYTE % 0.9 %; LYMPHOCYTE # 0.8 K/uL (0.8-4.0); LYMPHOCYTE % 7.4 %; MCH 30.6 pg (27.0-34.0); MCHC 33.6 gm/dL (32.0-36.5); MCV 91.1 fl (83.0-98.0); MONOCYTE # 1.1 K/uL (0.0-1.0); MONOCYTE % 10.8 %; MPV 9.1 fl (9.4-12.4); NEUTROPHIL # (ANC) 8.2 K/uL (1.4-9.0); NEUTROPHIL % 78.6 %; NRBC % 0 /100WBC (0-0.00); PLATELET COUNT 495 K/uL (150-450); RBC 3.04 M/uL (3.50-5.50); RDW-CV 13.3 % (11.9-14.6); WBC 10.4 K/uL (4.0-11.0)
[2016-09-15 08:15] LABS: ANION GAP 15.9 (10.0-19.0); BLOOD UREA NITROGEN 22 mg/dL (6-24); CHLORIDE 104 mMol/L (96-110); CO2 22 mMol/L (22-32); CREATININE 0.9 mg/dL (0.6-1.3); ESTIMATED GFR (MDRD EQUATION) > 60; MAGNESIUM 1.9 mg/dL (1.3-2.6); POTASSIUM 3.9 mMol/L (3.7-5.1); SODIUM 138 mMol/L (135-145)
--- NOTE | 2016-09-15 18:38 | NUR ---
Significant Event: PT A/O X3, VSS, PT ON 2-1L NC. PT UP WITH ASSIST X1 W/ WALKER. PT UP TO BR, UP TO CHAIR MOST OF TOD. ECHO TODAY. START ANTIBIOTIC - PO. FAMILY/FRIENDS AT BEDSIDE OFF/ON THIS TOD. CALL LIGHT AND PERSONAL ITEMS IN REACH, QUESTIONS/CONCERNS ADDRESSED THIS TOD. Follow up: ECHO TO BE READ, SPUTUM SAMPLE STILL NEEDED, CONTINUE TO MONITER, CONTINUE PER PLAN OF CARE.
[2016-09-16 04:26] LABS: ALBUMIN 2.3 gm/dL (3.5-5.0); ANION GAP 16.9 (10.0-19.0); BLOOD UREA NITROGEN 28 mg/dL (6-24); CALCIUM 7.8 mg/dL (8.5-10.5); CHLORIDE 100 mMol/L (96-110); CO2 24 mMol/L (22-32); CREATININE 1.1 mg/dL (0.6-1.3); ESTIMATED GFR (MDRD EQUATION) > 60; MAGNESIUM 1.9 mg/dL (1.3-2.6); PHOSPHORUS 3.7 mg/dL (2.5-4.9); POTASSIUM 3.9 mMol/L (3.7-5.1); SODIUM 137 mMol/L (135-145)
--- NOTE | 2016-09-16 05:33 | NUR ---
Significant event: A/O x 3. Up with 1 assist and walker. Martino intact with 950ml UOP. Kept c-pap on all night. Does need remiders to not use that right arm to push and pull on things but once reminded he does well. Cooperative with all cares. Echo done yesterday but has not been read as of yet. Still need sputum culture.
--- NOTE | 2016-09-16 15:45 | NUR ---
Introduced self and role of care management to patient. He lives with in [place]. He has a walker and a cane at home and uses them as needed. Is not on O2 at home, but does have CPAP at home. He plans home when ready for discharge. Says his had hip surgery a month ago and he had shoulder surgery about 2 weeks ago, so they limp along together. He says their daughter and 2 granddaughters live in [place] also. He says their house is all one level and easy to get around in. Will follow.
--- NOTE | 2016-09-16 16:20 | NUR ---
Significant Event: pt up in [place] and to chair/bathroom 1 asst walker. 02 weaned 1liter. IS encouraged, pt gets to 1750. Pt has [address] Connolly told. BM today. [place] for pain last at 1600. Follow up:
[2016-09-17 03:49] LABS: BASOPHIL # 0.1 K/uL (0.0-0.2); BASOPHIL % 0.7 %; EOSINOPHIL # 0.4 K/uL (0.0-0.5); EOSINOPHIL % 3.6 %; HEMATOCRIT 30.4 % (33.0-50.0); HEMOGLOBIN 9.6 g/dL (11.0-16.0); IMMATURE GRANULOCYTE # 0.1 K/uL (0.0-0.3); IMMATURE GRANULOCYTE % 1.2 %; LYMPHOCYTE # 1.1 K/uL (0.8-4.0); LYMPHOCYTE % 10.7 %; MCH 29.3 pg (27.0-34.0); MCHC 31.6 gm/dL (32.0-36.5); MCV 92.7 fl (83.0-98.0); MONOCYTE # 1.1 K/uL (0.0-1.0); MONOCYTE % 11.1 %; MPV 9.2 fl (9.4-12.4); NEUTROPHIL # (ANC) 7.1 K/uL (1.4-9.0); NEUTROPHIL % 72.7 %; NRBC % 0 /100WBC (0-0.00); PLATELET COUNT 544 K/uL (150-450); RBC 3.28 M/uL (3.50-5.50); RDW-CV 13.2 % (11.9-14.6); WBC 9.8 K/uL (4.0-11.0)
[2016-09-17 04:06] LABS: ANION GAP 15.8 (10.0-19.0); CALCIUM 8.2 mg/dL (8.5-10.5); CREATININE 1.2 mg/dL (0.6-1.3); MAGNESIUM 1.7 mg/dL (1.3-2.6); POTASSIUM 3.8 mMol/L (3.7-5.1)
--- NOTE | 2016-09-17 04:28 | NUR ---
Significant Event: A/O, [place], SBP 120-140s, HR 80-100s, cpap with 2L O2 at HS, wean O2 as able, morfin-900ml, ambulates 1 assist, passing flatus but no bm overnight, dressing to R) shoulder c.d.i, [place] x1, hs [id number] Follow up: continue plan of care
--- NOTE | 2016-09-17 11:08 | NUR ---
Diabetes consult: PAtient with A1C of 6.6%. Blood sugars have been labile, however fasting blood sugar improved this morning at 124. The patient is receiving Megace twice daily and Novolog mild correction. Will continue to trend blood sugars. The patient dose take glipizide at home to control blood sugars.
--- NOTE | 2016-09-17 11:15 | NUR ---
Received call from patient's daughter Ariana, wanting to know about conversation with her dad. Updated her on the conversation. She says they are planning on him coming home when ready for discharge. Talked to Pat PT and patient walked in the [place] with therapy. Will follow.
--- NOTE | 2016-09-17 16:07 | NUR ---
Significant Event: A/O X3. HARD OF HEARING. UP WITH 1 ASSIST, GB AND WALKER. IV TO LEFT FA SL'D. RIGHT SHOULDER DRESSING INTACT. SHOWERED. C/O PAIN TO RIGHT SHOULDER, PRN NORCO GIVEN X1. VSS. O2 @ 2L NC, CPAP AT NIGHT WITH 2L O2. AMBULATED 500 FEET TOTAL TODAY WITH PT. Follow up: CM WORKING ON PLACEMENT.
--- NOTE | 2016-09-18 04:33 | NUR ---
Significant Event: Patient A/Ox3. Sometimes forgetful. Very pleasant. Up 1-assist with walker and gait belt. Complained of pain in shoulder at HS of 01/06. [place] given x1. No BM this shift. Follow Up: Continue POC.
[2016-09-18 05:18] LABS: ANION GAP 15.7 (10.0-19.0); CALCIUM 8.4 mg/dL (8.5-10.5); CREATININE 1.3 mg/dL (0.6-1.3); MAGNESIUM 1.8 mg/dL (1.3-2.6); POTASSIUM 3.7 mMol/L (3.7-5.1)
--- NOTE | 2016-09-18 12:03 | NUR ---
A - PT SCREENED D/T LOS. 2+ EDEMA. HT: 63" WT: 186# BMI: 32.9 LABS: ACCUCHECK WNL->300, GLU 141, BUN/CR 34/1.3, ALB 2.3 MEDS: BACTRIM DS, ALDACTONE, SSI, MEGACE DIET: CARDIAC, 1500 ML FLUID. INTAKE: 75-100% NEEDS: 8011-2245 KCAL (15-20 KCAL/KG), 68-85 G PRO (0.8-1 G/KG), 1500 ML WATER (PER MD) D - NO NUTRITION RELATED DIAGNOSIS IDENTIFIED AT THIS TIME. I - GOAL FOR INTAKE TO REMAIN 75-100% FOR DURATION OF STAY. M/E - WILL ASSIST NEEDED.
--- NOTE | 2016-09-18 13:11 | NUR ---
Spoke with patient, his and daughter. Talked to them about skilled care versus home. Told daughter he is walking 300 ft with therapy and probably won't qualify for skilled care, but can make the referral. He says he is doing well and can go home. Talked about HHC. Daughter says she was an BUSINESS PROCESS MODELER and they all agree he can go home and he will be happy there. They would like [facility]. Gave them choices of agencies and they select [facility] out of [place]. Daughter has questions regading need for a suprapubic cath and if that will be done this stay. Reviewed chart with her and read her Dr. Barney's dictation, which says he will go with the morfin cath for about 4 weeks and [facility] She voices understanding. She wonders when he will be discharged. Called and spoke with Dr. Moran and updated him. He says he will discharge patient today. Updated them. Referral made to Nigel at [facility] and info faxed. Will fax orders and d/c instructions when available.
[2016-09-18] MEDS ORDERED: LIPITOR40 MG PO (13:25)
[2016-09-18] MEDS ORDERED: ALDACTONE25 MG PO (13:33)
[2016-09-18] MEDS ORDERED: XARELTO15 MG PO (13:34)
[2016-09-18] MEDS ORDERED: BACTRIM 400-801 EACH PO (13:35)
[2016-09-18] MEDS ORDERED: DEMADEX20 MG PO (13:36)
[2016-09-18] MEDS ORDERED: XARELTO20 MG PO (14:32)
--- NOTE | 2016-09-18 15:45 | NUR ---
D/C ORDERS WITH HOME HEALTH RECIEVED. REVIEWED ALL D/C INSTRUCTIONS INCLUDING MEDICATIONS, FOLLOW-UP APPTS (ALL SCHEDULED), INSTRUCTIONS, AND CARES. ROSE MARIE PRINTOUTS GIVEN ON ALL NEW MEDS AND HOME LOVE CATHETER & LEG BAG CARES. LOVE WAS CHANGED TO LEG BAG AT THE TIME OF D/C AND LOVE WAS CAPPED AND BAGGED AND SENT HOME WITH THE PATIENT WITH ALCOHOL PADS AND A GRADUATE CYLINDER; BOTH THE PATIENT AND DAUGHTER VERBALIZED UNDERSTANDING OF CATHETER CARES AND ALL D/C INFORMATION-ALSO REINFORCED THAT HOME HEALTH WOULD BE FOLLOWING. PIV D/C'D AND CATHETER INTACT. UP TO DATE ON VACCINES. TAKEN VIA W/C AND THE TRANSPORT TEAM TO THE FRONT ENTRANCE OF THE HOSPITAL AND HIS FAMILY TO DRIVE HIM HOME.
== END 2016-09-18 15:45 | disposition home health service (06) | DRG 291 ==
LOC: GPCU 19:10
PROVIDERS: Hospitalist; Internal Medicine; ADMIT Internal Medicine
DX: I50.33 Acute on chronic diastolic (congestive) heart failure (principal); J96.01 Acute respiratory failure with hypoxia; I26.99 Other pulmonary embolism without acute cor pulmonale; E11.9 Type 2 diabetes mellitus without complications; R33.9 Retention of urine, unspecified; I10 Essential (primary) hypertension; Z66 Do not resuscitate; Z85.46 Personal history of malignant neoplasm of prostate; E78.5 Hyperlipidemia, unspecified; Z96.611 Presence of right artificial shoulder joint; Z87.891 Personal history of nicotine dependence; Z95.5 Presence of coronary angioplasty implant and graft; Z79.82 Long term (current) use of aspirin; R00.0 Tachycardia, unspecified
CPT/HCPCS: J1940; J2020; J2185; J3475; J7040; J7050; J7612; Q9957